=== PATIENT | female | born 1980 | race Caucasian/White ===

== ENCOUNTER 2020-12-05 16:43 | Emergency (ER) | payer BC ==
[~2020-12-05] VITALS: Ht 177.8 cm; Wt 95.3 kg
--- NOTE | 2020-12-05 16:43 | NUR ---
PT BIB SELF C/O L CALF/BEHIND THE KNEE PAIN X 5-6 DAYS. PT IS AAOX4, NOT IN RESPIRATORY DISTRESS, V/S STABLE, KEPT RESTED AND COMFORTABLE. WILL CONTINUE TO MONITOR.
--- NOTE | 2020-12-05 17:00 | NUR ---
FRANCOIS STEWARD AT BEDSIDE FOR EVAL.
--- NOTE | 2020-12-05 17:29 | NUR ---
ER PHLEB AT BEDSIDE FOR BLOOD DRAW.
[2020-12-05 17:42] LABS: BASOPHILS % (AUTO) 0.3 % (0.0-2.0); EOSINOPHILS % (AUTO) 0.5 % (0.0-6.0); HEMATOCRIT 34 % (33-45); LYMPHOCYTES # (AUTO) 3.1 K/uL (0.8-4.8); LYMPHOCYTES % (AUTO) 39.4 % (20.0-44.0); MEAN CORPUSCULAR HGB CONC 32 g/dl (31.0-36.0); MEAN CORPUSCULAR VOLUME 82 fL (82-100); MONOCYTES # (AUTO) 0.4 K/uL (0.1-1.30); MONOCYTES % (AUTO) 5.1 % (2.0-12.0); NEUTROPHILS # (AUTO) 4.2 K/uL (1.8-8.9); NEUTROPHILS % (AUTO) 54.7 % (43.0-81.0); PLATELET COUNT (AUTO) 268 K/uL (150-450); RED BLOOD CELL COUNT(AUTO) 4.16 MIL/uL (4.0-5.2); WHITE BLOOD COUNT (AUTO) 7.8 K/uL (4.3-11.0)
--- NOTE | 2020-12-05 17:50 | NUR ---
COMMERCIAL ASSISTANT AT BEDSIDE FOR ULTRASOUND.
[2020-12-05 17:51] LABS: CALCIUM, SERUM 8.9 mg/dL (8.5-10.1); CREATININE 0.8 mg/dL (0.6-1.3)
[2020-12-05] MEDS ORDERED: IBUP-1955 PO (18:23)
--- NOTE | 2020-12-05 18:34 | NUR ---
Patient discharged to home in stable condition. Written and verbal after care instructions given. Patient verbalizes understanding of instruction.
[2020-12-05 18:35] VITALS: BP 127/71
== END 2020-12-05 18:37 | disposition home or self-care (01) ==
LOC: ER 16:43
DX: M79.662 Pain in left lower leg (principal); Z88.1 Allergy status to other antibiotic agents; Z88.8 Allergy status to other drugs, medicaments and biological substances
CPT/HCPCS: 36415; 80048-TC; 84702-TC; 85025-TC; 85730-TC; 93971-TC